=== PATIENT | male | born 1955 | race Caucasian/White ===

== ENCOUNTER 2020-04-22 19:35 | Emergency (ER) | payer OTHER ==
[~2020-04-22 19:35] MED LIST: ACETAMINOPHEN325 M1 PO; ASPIRIN EC325 M1 PO; CLEOCIN HCL300 MG PO; COUMADIN 4 MG TA4 M1 PO; FISH OIL 1,0001 EAC5 PO; KEFLEX500 MG PO; LIPITOR20 MG PO; MULTIVITAMINS PO; NORCO 5-325 TA1 EACH PO; PRILOSEC40 MG PO; PROPRANOLOL 8080 M1 PO; TOPAMAX 25 MG T25 M1 PO; TOPAMAX25 M1; TRICOR145 MG PO; ZPAK PO
[2020-04-22 22:52] LABS: APTT 32.1 Seconds (25.0-31.3); HEMATOCRIT 46.3 % (42.0-52.0); HEMOGLOBIN 15.9 gm/dL (14.0-18.0); INR 2.3; MCHC 34.4 g/dL (28.0-37.0); MCV 84.3 fL (80.0-100.0); MPV 9.5 fl. (7.2-11.1); PLATELET COUNT* 191 thou/uL (150-400); PROTIME 23.4 Seconds (9.20-11.50); RBC 5.49 mil/uL (4.50-6.00); RDW-CV 14.3 % (10.5-14.5); WBC 6.9 thou/uL (4.0-11.0)
[2020-04-22 22:53] LABS: ABSOLUTE BASOPHILS 0.1 thou/uL (0.0-0.2); ABSOLUTE EOSINOPHILS 0.2 thou/uL (0.0-0.7); ABSOLUTE LYMPHOCYTES 1.1 thou/uL (0.8-5.3); ABSOLUTE MONOCYTES 0.4 thou/uL (0.0-1.2); BASOPHILS 0.8 %; EOSINOPHILS 3.6 %; LYMPHOCYTES 16.2 %; MONOCYTES 6.5 %; POLYS 72.9 %
[2020-04-23] MEDS ORDERED: AMOXICILLIN 50500 MG PO (12:36)
[2020-04-23] MEDS ORDERED: NORCO 5-325 TA1 EAC1 PO (12:36)
== END 2020-04-22 22:20 | disposition home or self-care (01) ==
LOC: M.ERS 19:35
DX: R04.0 Epistaxis (principal); Z86.718 Personal history of other venous thrombosis and embolism; Z86.711 Personal history of pulmonary embolism; Z90.49 Acquired absence of other specified parts of digestive tract; Z98.52 Vasectomy status

== ENCOUNTER 2020-05-09 06:11 | Emergency (ER) | payer OTHER ==
[~2020-05-09] VITALS: Ht 185.4 cm; Wt 97.5 kg
[~2020-05-09 06:11] MED LIST changes: +AMOXICILLIN 50500 MG PO; +NORCO 5-325 TA1 EAC1 PO
[2020-05-09] MEDS ORDERED: METFORMIN HCL500 M3 PO (06:23)
[2020-05-09] MEDS ORDERED: COZAAR 25 MG TA25 M1 PO (06:23)
[2020-05-09 07:08] LABS: INR 2.6; PROTIME 25.9 Seconds (9.20-11.50)
[2020-05-09 07:25] VITALS: BP 167/105
== END 2020-05-09 07:28 | disposition home or self-care (01) ==
LOC: M.ERS 06:11
PROVIDERS: Emergency Medicine
DX: R04.0 Epistaxis (principal); Z90.89 Acquired absence of other organs; Z87.01 Personal history of pneumonia (recurrent); Z87.898 Personal history of other specified conditions